=== PATIENT | female | born 1990 | race Caucasian/White ===

== ENCOUNTER 2018-06-02 10:06 | Emergency (ER) | payer OTHER ==
[~2018-06-02] VITALS: Ht 162.6 cm; Wt 83.0 kg
[2018-06-02 10:20] VITALS: Ht 162.6 cm; Wt 83.0 kg
[2018-06-02 11:48] LABS: PLATELET COUNT 257 x10^3mcL (130-400)
[2018-06-02 11:54] LABS: BASOPHIL % 0 % (0-2)
[2018-06-02 12:08] LABS: CALCIUM 8.8 mg/dL (8.5-10.1); CARBON DIOXIDE 28.5 mmol/L (21-32); CHLORIDE SERUM 103 mmol/L (98-107); CREATININE SERUM 0.6 mg/dL (0.6-1.0); GFR1 > 60 mL/min; GLUCOSE SERUM 99 mg/dL (74-106); SODIUM SERUM 138 mmol/L (136-145)
[2018-06-02 12:19] LABS: ALBUMIN 4.2 g/dL (3.4-5.0); ALKALINE PHOSPHATASE 60 U/L (46-116); ALT/SGPT 25 U/L (14-59); AMYLASE 55 U/L (25-115); AST/SGOT 17 U/L (15-37); BILIRUBIN TOTAL 0.41 mg/dL (0.20-1.00); CHOLESTEROL 183 mg/dL (<200); LIPASE 116 IU/L (73-393); TOTAL PROTEIN, SERUM 7.9 g/dL (6.4-8.2)
[2018-06-02 12:20] LABS: HDL CHOLESTEROL 74 mg/dL (40-60)
[2018-06-02 12:27] LABS: microscopic required? YES; urine erythrocyte NEGATIVE (NEGATIVE)
[2018-06-02 15:12] VITALS: BP 111/70
== END 2018-06-02 15:12 | disposition home or self-care (01) ==
LOC: ED 10:06
PROVIDERS: Emergency Medicine
DX: K80.70 Calculus of gallbladder and bile duct without cholecystitis without obstruction (principal); E66.9 Obesity, unspecified; Z68.31 Body mass index [BMI] 31.0-31.9, adult
CPT/HCPCS: 36415; J1885